=== PATIENT | male | born 1975 | race African-American/Black ===

== ENCOUNTER 2019-01-10 09:35 | Emergency (ER) | payer OTHER ==
[~2019-01-10] VITALS: Ht 165.1 cm; Wt 84.0 kg
[2019-01-10 09:43] VITALS: BP 133/83
[2019-01-10] MEDS ORDERED: LIDOCAINE HCL/PF 1% 10 MG/ML 5ML VIAL IJ ONE (10:45)
[2019-01-10] MEDS ORDERED: BACITRACIN ZINC OINT UDPKT TOP ONE (10:45)
== END 2019-01-10 11:57 | disposition home or self-care (01) ==
LOC: ER 09:35
DX: S01.311A Laceration without foreign body of right ear, initial encounter (principal); F17.200 Nicotine dependence, unspecified, uncomplicated; W18.30XA Fall on same level, unspecified, initial encounter; Y93.89 Activity, other specified; Y92.9 Unspecified place or not applicable
CPT/HCPCS: 12013; 99283; J3490; Z7610

== ENCOUNTER 2019-01-27 09:11 | Emergency (ER) | payer SELFPAY ==
[~2019-01-27] VITALS: Ht 180.3 cm; Wt 73.0 kg
[2019-01-27 09:50] VITALS: BP 142/86
[2019-01-27] MEDS ORDERED: BACITRACIN ZINC OINT UDPKT TOP ONE (11:00)
== END 2019-01-27 11:01 | disposition home or self-care (01) ==
LOC: ER 09:11
DX: S01.311D Laceration without foreign body of right ear, subsequent encounter (principal); X58.XXXD Exposure to other specified factors, subsequent encounter
CPT/HCPCS: 99281; Z7610

== ENCOUNTER 2022-05-08 06:51 | Emergency (ER) | payer BC ==
[~2022-05-08] VITALS: Ht 175.3 cm; Wt 82.0 kg
[2022-05-08 12:07] VITALS: BP 132/77
[2022-05-08 12:15] LABS: CHLORIDE 92 mEq/L (98-107)
[2022-05-08 12:16] LABS: BASOPHILS % 0.8 % (0.0-2.0); EOSINOPHILS % 1.3 % (0.0-5.0); HEMATOCRIT. 43.3 % (42.0-52.0); HEMOGLOBIN. 15.1 g/dL (14.0-18.0); LYMPHOCYTES % 24.6 % (20.0-50.0); MEAN CORPUSCULAR HEMOGLOBIN 37.6 pg (28.0-32.0); MEAN CORPUSCULAR VOLUME 107.7 fL (80.0-94.0); MEAN PLATELET VOLUME 8.5 fl (7.4-10.4); MONOCYTES % 13.2 % (2.0-8.0); NEUTROPHILS % 60.1 % (40.0-76.0); PLATELET 182 x1000/uL (130-400); RED BLOOD CELL COUNT 4.02 mill/uL (4.7-6.1); RED CELL DISTRIBUTION WIDTH 15.2 % (11.6-14.6)
[2022-05-08 12:25] LABS: ETHANOL BLOOD < 10 mg/dL
[2022-05-08 12:36] LABS: CLARITY URINE CLEAR (CLEAR); COLOR URINE ORANGE (YELLOW); KETONES URINE 1+ (NEGATIVE); LEUKOCYTE ESTERASE URINE TRACE (NEGATIVE); NITRITE URINE NEGATIVE (NEGATIVE); OCCULT BLOOD URINE TRACE (NEGATIVE); PH URINE 6.5 (4.5-8.0); PROTEIN URINE TRACE (NEGATIVE); SPECIFIC GRAVITY URINE 1.015 (1.005-1.030)
[2022-05-08 12:45] LABS: INR 0.9; PROTHROMBIN TIME 9.9 sec (9.6-11.0)
[2022-05-08] MEDS ORDERED: SODIUM CHLORIDE 0.9% 1,000 ML IV ONE (12:45)
[2022-05-08] MEDS ORDERED: ONDANSETRON HCL 4MG/2ML INJ IV STA (12:45)
[2022-05-08] MEDS ORDERED: MORPHINE SULFATE 4 MG/ML CPJ (NOT FOR IM USE) IV STA (12:45)
[2022-05-08 12:52] LABS: *AMPHETAMINES SCREEN URINE NEGATIVE (NEGATIVE); *BARBITURATES SCREEN URINE NEGATIVE (NEGATIVE); *BENZODIAZEPINES SCREEN URINE NEGATIVE (NEGATIVE); *COCAINE SCREEN URINE NEGATIVE (NEGATIVE); CANNABINOID URINE SCREEN NEGATIVE (NEGATIVE); METHADONE URINE SCREEN NEGATIVE (NEGATIVE); OPIATES URINE SCREEN NEGATIVE (NEGATIVE); PHENCYCLIDINE URINE SCREEN NEGATIVE (NEGATIVE)
[2022-05-08] MEDS ORDERED: POTASSIUM CHLORIDE 20MEQ TABLET SR PO ONE (15:15)
[2022-05-08] MEDS ORDERED: OMEP20CA14 MT (15:20)
[2022-05-08] MEDS ORDERED: FAMO-135 MT (15:20)
== END 2022-05-08 15:35 | disposition home or self-care (01) ==
LOC: ER 06:51
DX: R07.89 Other chest pain (principal); R10.9 Unspecified abdominal pain
CPT/HCPCS: 36415; 71045; 80053; 80305; 80320; 81003; 83690; 83880; 84484; 85025; 85610; 93005; 96361; 96374; 96375; 99285; J2270; J2405; J7030; G0480